=== PATIENT | female | born 2000 | race Caucasian/White ===

== ENCOUNTER → 2022-10-20 08:08 | Outpatient (CLI) | payer BC, SELFPAY ==
--- NOTE | 2022-10-20 08:09 | DI.RAD.S_ITS ---
PROCEDURE: XR WRIST LT MIN 3V INDICATIONS: Previous left distal radius fracture TECHNIQUE: 4 views of the wrist were acquired. COMPARISON: Outside Facility, RG, XR WRIST 4V LEFT, 09/18/2022, 2:12. FINDINGS: Bones: Bone details are obscured by overlying cast. The overall alignment is stable. No suspicious bony lesions. Scaphoid view: Scaphoid appears intact. Soft tissues: No suspicious soft tissue calcifications. IMPRESSION: Suboptimal examination due to overlying cast. Bone details are obscured. The surgical scrub technologist is stable. Consider repeat examination after removal of cast. Dictated by: Ivania Coffman M.D. on 10/20/2022 at 11:19 Approved by: Ivania Coffman M.D. on 10/20/2022 at 11:20
== END ==
PROVIDERS: Referring Provider Physician Assistant; Visit Provider Physician Assistant
DX: S52.92XA Unspecified fracture of left forearm, initial encounter for closed fracture (principal)
CPT/HCPCS: 73110

== ENCOUNTER → 2022-10-20 | Outpatient (CLI) | payer BC, SELFPAY ==
--- NOTE | 2022-10-20 15:53 | DI.RAD.S_ITS ---
PROCEDURE: XR WRIST LT MIN 3V INDICATIONS: Left radial fracture TECHNIQUE: 4 views of the wrist were acquired. COMPARISON: Ot distal radius [facility], RG, XR WRIST 4V LEF. T, 09/18/2022, 2:12[facility], CR, XR WRIST LT MIN 3V, 10/20/2022, 8:04. FINDINGS: Bones: Sclerosis within the distal radius is present. Alignment is nearly anatomic. Scaphoid view: Negative Soft tissues: No suspicious soft tissue calcifications. IMPRESSION: 9 distal radial Dictated by: Miquel Najera M.D. on 10/20/2022 at 16:49 Approved by: Miquel Najera M.D. on 10/20/2022 at 16:50
== END ==
LOC: RAD 15:52
PROVIDERS: Referring Provider Physician Assistant; Visit Provider Physician Assistant
DX: S52.502A Unspecified fracture of the lower end of left radius, initial encounter for closed fracture (principal); X58.XXXA Exposure to other specified factors, initial encounter
CPT/HCPCS: 73110